=== PATIENT | male | born 2005 | race Caucasian/White ===

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

== ENCOUNTER 2025-07-25 11:31 | Emergency (ER) | payer MEDICAID, SELFPAY ==
--- OUTSIDE RECORDS SUMMARY | 2025-07-25 11:33 | XMS_ITS | Clinical Summary ---
Author Organization [facility] Address [address] [place] [address] Care Team Providers Care Director Of Pharmacy Name Role Phone Henri Miner MD Primary Care P rovider Allergies No known active allergies Medications propranoloL (INDERAL) 10 mg tabletIndication s:Anxiety attack Take 1 Tablet (10 mg) by mouth one time if needed (1-2 per day for anxiety) for up to 60 doses. 30 Tablet 1 5 Active ashwagandha extract 120 mg cap Take by mouth. 5 Active SUMAtriptan (IMITREX) 25 mg tabletIndication s:Migraine without aura and without status migrainosus, not intractable Take 1 Tablet (25 mg) by mouth every 2 hours if needed for Migraine. Give at minimum 2hrs apart. Max Dose: 200mg per 24hrs. 10 Tablet 3 5 Active ketoconazole 2 % creamIndications :Tinea versicolor Apply topically to affected area(s) two times daily. 60 g 3 5 Active hydrocortisone 2.5 % rectal creamIndications :Rectal fissure Apply topically to affected area(s) two times daily. 28 g 5 Active cyclobenzaprine 10 mg tabletIndication s:Neck pain, acute Take 1 Tablet (10 mg) by mouth at bedtime if needed for Muscle Spasm. 10 Tablet 5 Active Active Problems No known active problems Encounters Date Type Department Care Team Description 06/12/2025 3:05 PM CDT Office Visit [facility] [address] [place] [address] Henri Miner MD Cough (phlegm cough - going on for some time ); Headache (hit head- few months ago- wondering about getting imaging on head to make sure all is okay ) 06/12/2025 Travel from Last 3 Months Immunizations Immunization Administration Dates Next Due COVID-19 VACCINE SPIKEVAX (M ODERNA 50MCG/0.5ML) 12YO+ PFS 11/13/2024 HPV 9 (Gardasil 9) 12/19/2024,01/19/2016 Hepatitis B (Peds) 2005,2005, 005 INFLUENZA, IIV3 PF (AGE >= 6 MO) 11/13/2024 Tdap 01/19/2016 Social History Tobacco Use Types Packs/Day Years Used Date Smoking Tobacco: Never Passive Smoke Exposure: Never Smokeless Tobacco: Never Tobacco Cessation:Counseling Given: Yes Alcohol Use Standard Drinks/Week Comments Not Currently 0 (1 standard drink = 0.6 oz pur e alcohol) PHQ-2 Answer Date Recorded PHQ-2 TOTAL SCORE 0 01/16/2025 Social Connections Answer Date Recorded Do you [...] Sign Reading Time Taken Comments Blood Pressure 108/71 06/12/2025 3:23 PM CDT Pulse 60 06/12/2025 3:23 PM CDT Temperature - - Respiratory Rate - - Oxygen Saturation 95% 06/12/2025 3:23 PM CDT Inhaled Oxygen Concentration - - Weight 76.3 kg (168 lb 3.2 oz) 06/12/2025 3:23 P M CDT Height 177.6 cm (5' 9.92) 01/16/2025 9:53 AM CD T Body Mass Index - - Plan of Treatment Upcoming Encounters Date Type Department Care Team (Late st Contact Info) Description 07/28/2025 9:10 AM CDT Office Visit [facility] [address] [place] [address] Henri Miner MD [address] [place] [address] Health Maintenance Due Date Last Done Comments HIV for age 15-65 01/13/2020 Hepatitis C screening for age 18-79 2023 Influenza Vaccine (#1) 2025 11/13/2024 BMI (ht and wt on same day) for age 18+ 01/16/2026 01/16/2025, 07/30/2024, 06/25/2024 Depression screening for age 12+ 01/16/2026 01/16/2025, 12/19/2024, 11/13/2024, Additional history exists Well Child Check for age 3-20 01/16/2026 01/16/2025, 07/30/2024 Tetanus booster 01/18/2026 01/19/2016 RSV vaccine for adults or (1 - 1-dose 75+ series) 01/13/2080 Hepatitis B series for 19+ Completed 07/15, 2005, 2005 COVID-19 vaccine series Completed 11/13/2024 HPV series for age 9-45 Completed 12/19/2024, 01/18 Meningococcal series for age 11-21 Aged Out No longer eligible based on patient's age to complete this topic Pneumococcal series for age 6-49 Aged Out No longer eligible based on patient's age to complete this topic Insurance [facility] Care Teams Director Of Pharmacy Relationship Specialty Start Date End Date Henri Miner MD [address] [place] [address] PCP - General Family Practice 12/19/24
[2025-07-25 11:52] VITALS: BP 114/76; PULSE 76; RESP 16; TEMP 36.3; O2SAT 97; BMI 23.7
--- NOTE | 2025-07-25 12:06 | CRLHL7_ITS ---
For Patients: As a result of the Century Cures Act, medical imaging exams and procedure reports are released immediately into your electronic medical record. You may view this report before your referring provider. If you have questions, please contact your health care provider. INDICATION: Right lower quadrant pain TECHNIQUE: CT abdomen and pelvis acquired with 81 cc Isovue 370 IV contrast. COMPARISON: None. FINDINGS: Lower chest: Unremarkable. Liver: Unremarkable. Normal in size and attenuation. No suspicious masses. Gallbladder and bile ducts: Unremarkable. No stones or inflammation. No biliary dilatation. Pancreas: Unremarkable. No mass or inflammation. Spleen: Unremarkable. Adrenal glands: Unremarkable. No nodules. Kidneys: Unremarkable. No suspicious masses, stones, or hydronephrosis. GI tract: No evidence of bowel obstruction. The appendix is normal. There is a prominent, ovoid hyperdensity within the lumen of the cecum in the region of the ileocecal valve measuring approximately 1.9 x 1.5 centimeters which likely reflects enteric contents (series 2, image 105). Colonic diverticulosis without acute diverticulitis. Vasculature: Abdominal aorta is normal in caliber. Mesenteric arteries are patent. Lymph nodes: No lymphadenopathy. Peritoneum/Abdominal Wall: Unremarkable. No sign of mass or infiltration. No free air or significant free fluid. Pelvis: Unremarkable. Bones: Unremarkable. IMPRESSION: 1. No acute findings within the abdomen or pelvis. Normal appendix. 2. Ovoid intraluminal hyperdensity within the cecum strongly favored to reflect ingested contents/stool. However, if patient is at high risk of GI malignancy, consider follow-up CT to re-evaluate clinical discretion. Please note that all CT scans at this facility use dose modulation, iterative reconstruction, and/or weight-based dosing when appropriate to reduce radiation dose to as low as reasonably achievable. Dictated by Nicolasa Butcher MD @ 07/25/2025 12:57:37 PM (Electronically Signed)
--- NOTE | 2025-07-25 12:07 | ED.ABDPAIN ---
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 The pain became more constant and has worsened since yesterday. He does not report any fevers. He states that the pain is worse with movement and when standing up straight. Related Data Previous Rx's ?Medication ?Instructions ?Recorded ketorolac 10 mg tablet 10 mg PO TID 5 days #15 tabs 07/25/25 Allergies Allergy/AdvReac Type Severity Reaction Status Date / Time No Known Drug Allergies Allergy Verified 12/09/24 17:50 Review of Systems Status of ROS Reports: 10 or more systems reviewed and unremarkable except as noted in History and below Narrative Constitutional: No fevers, no weight gain or loss. Eyes: No discharge. No vision changes. HENT: No congestion, no sore throat, no ear pain. Cardiovascular: No chest pain, no palpitations. Respiratory: No shortness of breath, no wheezes, no cough. Gastrointestinal: No vomiting, no diarrhea. Abdominal pain as described above. Genitourinary: No dysuria, no hematuria. Musculoskeletal: Normal range of motion. Skin: No rashes, no pruritis. Neurological: No dizziness, weakness, sensory change, speech change. Endo/Heme/Allergies: No bruising or bleeding. No polydipsia. Pysch: no suicidality, no anxiety, no insomnia. All other systems reviewed and are negative. [facility] Social History Smoking Status: Never smoker Do you use any of these nicotine containing products: None How often do you have a drink containing alcohol: never How often do you have six or more drinks on one occasion: Never AUDIT-C Alcohol total score: 0 Non-prescribed substance use: denies use service: No Exam Narrative: Exam Narrative: Constitutional: Well-developed, well-nourished, no acute distress. HEENT: Normocephalic, atraumatic. Neck: Normal range of motion. Nontender. Supple. Heart: Regular. No murmurs. Normal rate. Intact distal pulses. Lungs: Clear to auscultation. No chest discomfort. No wheezes, rhonchi, or rales. Abdomen: Decreased bowel sounds. Rovsing sign is positive. Pain at McBurney's point. Some rebound tenderness. Genitalia: Deferred. Back: No midline tenderness. Normal range of motion. Extremities: Normal range of motion. No injury. Skin: Intact. No rash. Warm. No erythema or pallor. Neurologic: No altered sensation. No weakness. Alert and oriented. Psychiatric: No suicidality. No anxiety or depression. No insomnia. Nursing notes and vitals signs are reviewed. Const: Vital Signs, click to edit/add: Vital Signs - 24 hr 07/25/25 11:52 Temperature 97.3 F L Pulse Rate [Right Pulse Oximeter] 76 Respiratory Rate 16 Blood Pressure [Ri ght Upper Arm] 114/76 Pulse Oximetry 97 Oxygen Delivery Me thod Room Air Course Vital Signs Vital signs: Initial Vital Signs Temperature 97.3 F L 07/25/25 11:52 Temperature Source Temporal Artery Scan 07/25/25 11:52 Pulse Rate 76 07/25/25 11:52 Pulse Rhythm Regular 07/25/25 11:52 Respiratory Rate 16 07/25/25 11:52 Blood Pressure 114/76 07/25/25 11:52 Blood Pressure Mean 88 07/25/25 11:52 Blood Pressure Position Sitting 07/25/25 11:52 Pulse Oximetry 97 07/25/25 11:52 Oxygen Delivery Method Room Air 07/25/25 11:52 Vital Signs Temperature 97.3 F L 07/25/25 11:52 Pulse Rate 76 07/25/25 11:52 Respiratory Rate 16 07/25/25 11:52 Blood Pressure 114/76 07/25/25 11:52 Pulse Oximetry 97 07/25/25 11:52 Oxygen Delivery Method Room Air 07/25/25 11:52 Temperature 97.3 F L 07/25/25 11:52 Pulse Rate 76 07/25/25 11:52 Respiratory Rate 16 07/25/25 11:52 Blood Pressure 114/76 07/25/25 11:52 Pulse Oximetry 97 07/25/25 11:52 Oxygen Delivery Method Room Air 07/25/25 11:52 MDM - Abdominal Pain MDM Narrative Medical decision making narrative: This patient comes in with abdominal pain as described above. He is displaying enough symptoms that could suggest an appendicitis to where I did order CT scan with IV contrast. These images returned with no evidence of appendicitis. There is a collection of stool near the ileocecal valve that may be causing some current symptoms. Additionally his lab results are also reassuring. The patient is okay to be discharged home and I did provide a prescription for Toradol. Lab Data Labs: Lab Results 07/25/25 Range/Units 12:06 WBC 11.38 H (4.50-11.00) K/uL RBC 5.61 (4.30-5.90) m/uL Hgb 16.8 (13.5-17.5) gm/dL Hct 49.8 (37.0-53.0) % MCV 89 (80-100) fL MCH 30 (26-34) pg MCHC 34 (32-36) gm/dL RDW Coeff of Kash 11.8 (11.5-15.5) % Plt Count 176 (140-440) K/uL Neut % (Auto) 68.7 (42.0-72.0) % Lymph % (Auto) 19.9 L (20-44) % [place] % (Auto) 7.2 (0.0-11.0) % Eos % (Auto) 3.7 (0.0-7.0) % Baso % (Auto) 0.4 (0.0-3.0) % Neut # (Auto) 7.80 H (1.7-7.0) K/uL Lymph # (Auto) 2.30 (0.90-2.90) K/uL [place] # (Auto) 0.80 (0.00-0.90) K/UL Eos # (Auto) 0.40 (0.00-0.50) K/uL Baso # (Auto) 0.00 (0.00-0.30) K/uL Abs Immat Gran (auto) 0.00 (0.00-0.30) K/uL Imm/Tot Granulo (auto) 0.1 % Sodium 135 (135-149) mmol/L Potassium 4.0 (3.6-5.1) mmol/L Chloride 98 (96-114) mmol/L Carbon Dioxide 29 (20-32) mmol/L Anion Gap 8 (7-15) mEq/L BUN 14 (5-24) mg/dL Creatinine 0.9 (0.5-1.5) mg/dL Estimated Creat Clear 135.19 Estimated GFR 125 ml/min Glucose 90 (60-115) mg/dL Calcium 9.7 (8.4-10.6) mg/dL Imaging Data CT scan - abdomen: Radiologist's impression: 1. No acute findings within the abdomen or pelvis. Normal appendix. 2. Ovoid intraluminal hyperdensity within the cecum strongly favored to reflect ingested contents/stool. However, if patient is at high risk of GI malignancy, consider follow-up CT to re-evaluate clinical discretion. Discharge Plan Discharge Clinical Impression: Abdominal pain Patient Disposition: Home, Self-Care Condition: Stable Additional Instructions: Take medication as needed and directed. Follow up with MD or return if symptoms are persistent or worsening. Prescriptions: New ketorolac 10 mg tablet 10 mg PO TID 5 Days Qty: 15 0RF Follow Up/Referrals: LINA LUNDBERG DO [Primary Care Provider, Family Practice] Stand Alone Forms: [facility] Info Instructions
[2025-07-25 12:29] LABS: Hematocrit* 49.8 % (37.0-53.0); Hemoglobin* 16.8 gm/dL (13.5-17.5); Immature Granulocytes Pct Auto 0.1 %; Mean Corpuscular HGB Conc 34 gm/dL (32-36); Mean Corpuscular Hemoglobin 30 pg (26-34); Mean Corpuscular Volume 89 fL (80-100); RDW Coefficient of Variation % 11.8 % (11.5-15.5); Red Blood Count* 5.61 m/uL (4.30-5.90); White Blood Count* 11.38 K/uL (4.50-11.00)
[2025-07-25 12:43] LABS: Chloride* 98 mmol/L (96-114); Sodium* 135 mmol/L (135-149)
[2025-07-25 12:44] LABS: Immature Granulocytes Abs Auto 0.00 K/uL (0.00-0.30); Lymphocytes Absolute Auto 2.30 K/uL (0.90-2.90); Potassium* 4.0 mmol/L (3.6-5.1); Slide Review Reflex No
[2025-07-25 12:46] LABS: Blood Urea Nitrogen* 14 mg/dL (5-24); Creatinine* 0.9 mg/dL (0.5-1.5); Est. Creatinine Clearance* 135.19; Estimated Glomerular Filt Rate 125 ml/min
[2025-07-25 12:47] LABS: Anion Gap 8 mEq/L (7-15); Calcium* 9.7 mg/dL (8.4-10.6); Carbon Dioxide* 29 mmol/L (20-32); Glucose* 90 mg/dL (60-115)
[2025-07-25 13:22] VITALS: BP 118/63; PULSE 63; RESP 18; TEMP 36.6
== END 2025-07-25 13:20 | disposition home or self-care (01) ==
PROVIDERS: Emergency Provider Emergency Medicine Emergency Medical Services; PCP Student in an Organized Health Care Education/Training Program
DX: R10.9 Unspecified abdominal pain (principal)
CPT/HCPCS: 36415; 74177; 80048; 85025; 99284; 99285; Q9967